=== PATIENT | female | born 2000 | race Caucasian/White ===

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

== ENCOUNTER 2021-03-14 03:43 | Emergency (ER) | payer OTHER ==
[~2021-03-14 03:43] MED LIST: GLUCOPHAGE500 MG PO; NORCO 10-325 T1 EACH PO
[2021-03-14 05:40] LABS: HEMOGLOBIN 15.5 gm/dl (12.3-15.3); RED BLOOD COUNT 5.32 M/UL (4.00-5.10); WHITE BLOOD COUNT 10.2 K/UL (4.5-11.0)
[2021-03-14 06:16] LABS: BUN/CREATININE RATIO 13 (0-10)
[2021-03-14] MEDS ORDERED: ZITHROMAX250 MG PO ×2 (06:46→06:49)
[2021-03-14] MEDS ORDERED: PHENERGAN 25 MG25 M1 PO ×2 (06:46→06:49)
[2021-03-14] MEDS ORDERED: FLORASTOR250 MG PO ×2 (06:46→06:49)
== END 2021-03-14 07:12 | disposition home or self-care (01) ==
LOC: ER1 03:43
PROVIDERS: Emergency Medicine; Physician Assistant Medical
DX: J18.9 Pneumonia, unspecified organism (principal); Z20.822 Contact with and (suspected) exposure to COVID-19; Z88.2 Allergy status to sulfonamides; Z88.8 Allergy status to other drugs, medicaments and biological substances
CPT/HCPCS: 71045; 80053; 83605; 83690; 85025; 87040; 96374; 96375; 99284; J2405; J2550; U0002

== ENCOUNTER 2021-07-29 18:19 | Emergency (ER) | payer OTHER ==
[~2021-07-29 18:19] MED LIST changes: +FLORASTOR250 MG PO; +PHENERGAN 25 MG25 M1 PO; +ZITHROMAX250 MG PO
[2021-07-29 20:25] LABS: HEMOGLOBIN 14.6 gm/dl (12.3-15.3); RED BLOOD COUNT 4.74 M/UL (4.00-5.10); WHITE BLOOD COUNT 13.4 K/UL (4.5-11.0)
[2021-07-29 21:17] LABS: BUN/CREATININE RATIO 25 (0-10)
== END 2021-07-29 21:51 | disposition home or self-care (01) ==
LOC: ER1 18:19
PROVIDERS: Family Medicine
DX: R20.2 Paresthesia of skin (principal); R07.89 Other chest pain; F41.9 Anxiety disorder, unspecified; Z88.2 Allergy status to sulfonamides; Z88.1 Allergy status to other antibiotic agents
CPT/HCPCS: 71045; 80053; 81001; 82550; 82553; 83690; 84484; 84703; 85025; 93005; 99284

== ENCOUNTER → 2022-01-07 | Day surgery (SDC) | payer OTHER ==
[~2022-01-07] MED LIST changes: +ALDACTONE50 MG PO; +HYDROCODON-ACE1 EAC4 PO; +IBUPROFEN600 MG PO; +PERCOCET 5-3251 EACH PO; +ZOFRAN 4 MG TAB4 MG PO
[2022-01-07 13:55] LABS: HEMOGLOBIN 14.1 gm/dl (12.3-15.3); RED BLOOD COUNT 4.56 M/UL (4.00-5.10); WHITE BLOOD COUNT 11.8 K/UL (4.5-11.0)
== END | disposition home or self-care (01) ==
LOC: OR 13:19
PROVIDERS: Obstetrics & Gynecology
DX: R10.2 Pelvic and perineal pain (principal); Z88.1 Allergy status to other antibiotic agents; Z88.2 Allergy status to sulfonamides; I10 Essential (primary) hypertension; K21.9 Gastro-esophageal reflux disease without esophagitis; Z87.42 Personal history of other diseases of the female genital tract
CPT/HCPCS: 81001; 84703; 85025; J1100; J2001; J2250; J2405; J2704; J2710; J2795; J3010